=== PATIENT | female | born 1990 | race Two or more races ===

== ENCOUNTER 2023-10-25 18:17 | Emergency (ER) | payer BC ==
[2023-10-25 18:45] LABS: Bilirubin Neg (Negative); Blood, Urine 150 (Negative); Clarity Clear (Clear); Glucose, Urine (Dipstick) Normal (Negative); Ketone, Urine Negative (Negative); Leukocyte Negative (Negative); Nitrite Negative (Negative); Protein, Urine (Dipstick) Negative (Neg-Trace); Urobilinogen Normal mg/dL (Less than 2)
[2023-10-25 18:54] LABS: #Basophils 0.05 10x3/uL (0.0-0.2); #Monocytes 0.71 10x3/uL (0.0-1.1); #Neutrophils 6.52 10x3/uL (1.5-8.4); %Basophils 0.4 % (0.0-2.0); %Eosinophils 0.9 % (0.0-6.0); %Lymphocytes 33.6 % (18.0-47.0); %Monocytes 6.4 % (0.0-10.0); %Neutrophils 58.5 % (40.0-75.0); Hemoglobin 13.3 g/dL (12.0-15.5); Mean Corpuscular HGB CONC 34.1 g/dL (32.0-36.0); Mean Corpuscular Hemoglobin 29.7 pg (27.0-33.0); Mean Corpuscular Volume 87.1 fL (81.6-98.3); Platelet Count 319 10x3/uL (150-450); RBC Distribution Width 13.2 % (11.5-14.5); Red Blood Cell (RBC) Count 4.48 10x6/uL (3.90-5.03); White Blood Cell (WBC) Count 11.1 10x3/uL (3.5-10.5)
[2023-10-25 19:02] LABS: Bacteria/HPF 1+ HPF (None Seen); CAUTI Indications for Culture Pregnancy; RBC/HPF 0-3 HPF (0-3); Squamous Epithelial 0-3 HPF (0-3); Urine Culture Reflex Yes Yes; WBC/HPF None Seen HPF (0-3)
[2023-10-25 19:07] LABS: ALT (SGPT) 14 U/L (8-55); AST (SGOT) 22 U/L (5-34); Albumin 3.6 g/dL (3.5-5.0); Alkaline Phosphatase 42 U/L (40-110); Anion Gap 11 mmol/L (10-20); BUN (Urea Nitrogen) 12 mg/dL (7.0-18.7); Bilirubin, Total 0.2 mg/dL (0.2-1.2); Calc. Creatinine Clearance 0 mL/min (70-130); Calcium 9.5 mg/dL (7.8-10.44); Carbon Dioxide 26 mmol/L (22-29); Chloride 104 mmol/L (98-107); Estimated GFR 105; Globulin 3.6 g/dL (2.4-3.5); Glucose 102 mg/dL (70-105); Potassium 4.1 mmol/L (3.5-5.1); Protein, Total 7.2 g/dL (6.0-8.3); Sodium 137 mmol/L (136-145)
== END 2023-10-25 21:40 | disposition home or self-care (01) ==
LOC: CSHERS 18:17
DX: O20.9 Hemorrhage in early pregnancy, unspecified (principal); Z3A.01 Less than 8 weeks gestation of pregnancy
CPT/HCPCS: 36415; 76801; 80053; 81001; 84702; 85025; 86900; 86901; 87086

== ENCOUNTER 2025-01-14 12:51 | Inpatient (IN) | payer BC ==
[2025-01-14 13:45] LABS: Fetal Membranes Rupture RUPTURE DETECTED (No Rupture)
[2025-01-14] MEDS ORDERED: Carboprost 250 MCG/ML AMP IM PRN (13:52)
[2025-01-14] MEDS ORDERED: Diphenoxylate HCl/Atropine Tablet PO PRN (13:52)
[2025-01-14] MEDS ORDERED: Lidocaine 1% (PF) 30 ML VIAL SC PRN (13:52)
[2025-01-14] MEDS ORDERED: Ibuprofen 800 MG TAB PO PRN (13:52)
[2025-01-14] MEDS ORDERED: Acetaminophen 500 MG TAB PO PRN (13:52)
[2025-01-14] MEDS ORDERED: hydrALAZINE 20 MG/ML VIAL SLOW IVP PRN (13:52)
[2025-01-14] MEDS ORDERED: Ondansetron PF 4 MG/2 ML Vial IVP PRN (13:52)
[2025-01-14] MEDS ORDERED: Tranexamic Acid 1,000 MG/10 ML VIAL IVP PRN (13:52)
[2025-01-14] MEDS ORDERED: Methylergonovine 0.2 MG/ML VIAL IM PRN (13:52)
[2025-01-14] MEDS ORDERED: Oxytocin 30 units/NS 500 ML 500 ML IV SCH (14:00)
[2025-01-14 15:15] LABS: Hematocrit 37.0 % (34.9-44.5); Hemoglobin 12.4 g/dL (12.0-15.5); Mean Corpuscular Hemoglobin 29.2 pg (27.0-33.0); Mean Corpuscular Volume 87.3 fL (81.6-98.3); Platelet Count 247 10x3/uL (150-450); Red Blood Cell (RBC) Count 4.24 10x6/uL (3.90-5.03); White Blood Cell (WBC) Count 13.54 10x3/uL (3.5-10.5)
[2025-01-14 15:57] LABS: Hep B Surf Ag - L&D Non-Reactive S/CO (NonReactive)
[2025-01-14 15:58] LABS: Syphilis Antibody Index 0.09 S/CO (<1.00 Non-Reactive)
[2025-01-14 19:01] VITALS: BMI 39.4
[2025-01-15] MEDS ORDERED: Ondansetron PF 4 MG/2 ML Vial IVP PRN ×2 (00:09→13:29)
[2025-01-15] MEDS ORDERED: Acetaminophen 325 MG TAB PO PRN (00:09)
[2025-01-15] MEDS ORDERED: diphenhydrAMINE 50 MG/ML VIAL IVP PRN (00:09)
[2025-01-15] MEDS ORDERED: fentaNYL 2 mcg/Ropivacaine 0.2% Epidural 100 ML CADD EPIDURAL SCH (00:15)
[2025-01-15] MEDS ORDERED: Communication Order-Pharmacy FS SCH (00:15)
[2025-01-15] MEDS: fentaNYL/Ropivacaine Epidural 100 ML ONE ×2 (00:36→13:35)
[2025-01-15] MEDS: Oxytocin 30 units/NS 500 ML 500 ML IV SCH (01:02)
[2025-01-15] MEDS ORDERED: Lanolin Ointment 7 GM TUBE TOP PRN (13:29)
[2025-01-15] MEDS ORDERED: Oxytocin 30 units/NS 500 ML 500 ML IV SCH (13:29)
[2025-01-15] MEDS ORDERED: hydrALAZINE 20 MG/ML VIAL SLOW IVP PRN (13:29)
[2025-01-15] MEDS ORDERED: Milk Of Magnesia 30 ML UDCUP PO PRN (13:29)
[2025-01-15] MEDS ORDERED: Bisacodyl 10 MG SUPP PR PRN (13:29)
[2025-01-15] MEDS: Boostrix 0.5 ML (Tdap) VIAL (>/=7 yrs of age) IM ONE (13:35)
[2025-01-15] MEDS ORDERED: HYDROcodone/Acetaminophen 10/325 mg Tablet PO PRN ×2 (14:08→14:09)
[2025-01-15] MEDS: Ibuprofen 800 MG TAB PO SCH (15:37)
[2025-01-15] MEDS: Benzocaine-Menthol 82.5 ML CAN TOP PRN (15:37)
[2025-01-15] MEDS: Ferrous Sulfate 325 MG TAB PO SCH (17:11)
[2025-01-16 07:27] VITALS: BP 118/76; TEMP 97.9
== END 2025-01-16 15:30 | disposition home or self-care (01) | DRG 807 ==
LOC: CSHLD/OP 12:51 → CSHLD 14:01 → CSHPP 01-15 13:07
PROVIDERS: ADMIT Obstetrics & Gynecology; ATTEND Obstetrics & Gynecology
PROC: 10E0XZZ Delivery of Products of Conception, External Approach (ICD-10-PCS; principal; 2025-01-15)
PROC: 0KQM0ZZ Repair Perineum Muscle, Open Approach (ICD-10-PCS; 2025-01-15)
DX: O42.02 Full-term premature rupture of membranes, onset of labor within 24 hours of rupture (principal); Z37.0 Single live birth; O70.1 Second degree perineal laceration during delivery; Z3A.38 38 weeks gestation of pregnancy; Z79.82 Long term (current) use of aspirin
CPT/HCPCS: 51702; 84112; 85027; 86780; 86850; 86900; 86901; 87340; 99285; J2590